=== PATIENT | male | born 1995 | race Two or more races ===

== ENCOUNTER 2019-11-13 14:13 | Emergency (ER) | payer OTHER ==
--- NOTE | 2019-11-13 14:25 | PDOC ---
Rapid Medical Evaluation Time Seen by Provider: 11/13/19 14:23 Medical Evaluation: Allergies Allergy/AdvReac Type Severity Reaction Status Date / Time No Known Allergies Allergy Verified 11/13/19 14:23 11/13/19 14:23 I have performed a brief in-person examination on this patient. CC: "I have a cyst on my back." PE: draining cyst to rachana fold Orders: wound cx Patient will proceed to ED for further evaluation. 11/13/19 14:25 Discharge Disposition - Diagnosis Pilonidal cyst - Referrals - Patient Instructions - Post Discharge Activity
[2019-11-13 14:27] VITALS: BP 121/67; PULSE 67; TEMP 98.8; BMI 40.3
--- NOTE | 2019-11-13 15:47 | PDOC ---
History of Present Illness - General Chief Complaint: Wound Stated Complaint: BACK PAIN Time Seen by Provider: 11/13/19 14:23 - History of Present Illness Initial Comments: 11/13/19 15:45 24-year-old male no comorbidities presents for pain full area on his lower back and buttocks x1 week no systemic symptoms. The area started to drain today. Past History - Medical History Allergies/Adverse Reactions: Allergies Allergy/AdvReac Type Severity Reaction Status Date / Time No Known Allergies Allergy Verified 11/13/19 14:23 Home Medications: Ambulatory Orders Cephalexin [Keflex] 500 mg PO QID #40 capsule 11/13/19 Ibuprofen [Motrin -] 600 mg PO TID #30 tablet 11/13/19 Sulfamethoxazole/Trimethoprim [Bactrim Ds -] 1 tab PO BID #14 tablet 11/13/19 COPD: No - Psycho-Social/Smoking History Smoking History: Never smoked - Substance Abuse Hx (Audit-C & DAST Scrn) How often the patient has a drink containing alcohol: Never Score: In Men: 4 or > Positive; In Women: 3 or > Positive: 0 Screen Result (Pos requires Nsg. Audit-10AR): Negative In the last yr the pt used illegal drug/Rx for NonMed reason: No Score: Yes response is considered Positive: 0 Screen Result (Positive result requires Nsg. DAST-10): Negative Review of Systems - Review of Systems Constitutional: No: Fever *Physical Exam - Vital Signs Last Vital Signs Temp Pulse Resp BP Pulse Ox 98.8 F 67 18 121/67 98 11/13/19 14:23 11/13/19 14:23 11/13/19 14:23 11/13/19 14:23 11/13/19 14:23 - Physical Exam 11/13/19 15:46 There is a erythemic tender indurated area without fluctuance at the proximal aspect of the gluteal fold at the lumbosacral spine. Medical Decision Making - Medical Decision Making 11/13/19 15:46 No fluctuance. Patient will be started on Bactrim and Keflex encouraged warm compresses multiple times a day and general surgery follow-up I have reviewed the pathophysiology with the patient. They are in agreement with the treatment plan all questions were answered to their satisfaction. Understanding for follow-up without fail was also conveyed to the patient. Aidee wright they are in agreement. Discharge - Discharge Information Problems reviewed: Yes Clinical Impression/Diagnosis: Pilonidal cyst Condition: Stable Disposition: HOME - Admission No - Additional Discharge Information Prescriptions: Sulfamethoxazole/Trimethoprim [Bactrim Ds -] 1 tab PO BID #14 tablet Cephalexin [Keflex] 500 mg PO QID #40 capsule Ibuprofen [Motrin -] 600 mg PO TID #30 tablet - Follow up/Referral Referrals: Jose Nolan MD [Primary Care Provider] - - Patient Discharge Instructions Additional Instructions: Please take the antibiotics and Motrin as directed. Do not eat take any other [id number] anti-inflammatories. You may take Tylenol for pain as directed on top of the medication already prescribed. Return to the emergency room for further issues and without fail follow-up with general surgery in 1 to 2 days for further evaluation and treatment options. - Post Discharge Activity
== END 2019-11-13 15:57 | disposition home or self-care (01) ==
LOC: JERFT 14:13
DX: L05.01 Pilonidal cyst with abscess (principal)
CPT/HCPCS: 99282-25

== ENCOUNTER 2024-06-23 06:32 | Day surgery (SDC) | payer OTHER ==
[2024-06-21 13:06] VITALS: BMI 53.0
[2024-06-23 08:53] VITALS: RESP 18
[2024-06-23] MEDS: BUPIVACAINE HCL/PF 0.75% 10 ML VIAL NR ONE ×2 (09:15→09:19)
[2024-06-23] MEDS: LIDOCAINE HCL 1% PRESERVATIVE FREE - 30ML VIAL IJ ONE (09:15)
[2024-06-23 10:41] VITALS: BP 142/83; PULSE 86; TEMP 97.8
== END 2024-06-23 09:37 | disposition home or self-care (01) ==
LOC: JASU-SURG 06:32
PROVIDERS: ATTEND Pain Medicine Pain Medicine
PROC: 3E0T33Z Introduction of Anti-inflammatory into Peripheral Nerves and Plexi, Percutaneous Approach (ICD-10-PCS; 2024-06-23)
PROC: 3E0T3BZ Introduction of Anesthetic Agent into Peripheral Nerves and Plexi, Percutaneous Approach (ICD-10-PCS; principal; 2024-06-23 09:45)
DX: M47.816 Spondylosis without myelopathy or radiculopathy, lumbar region (principal)
CPT/HCPCS: 76000-TC-FY